=== PATIENT | male | born 1955 | race African-American/Black ===

== ENCOUNTER 2018-05-13 15:59 | Emergency (ER) | payer SELFPAY ==
[~2018-05-13] VITALS: Ht 182.9 cm; Wt 87.0 kg
[~2018-05-13 15:59] MED LIST: AMLO5TAB88 PO; MOTRIN PO
[2018-05-13] MEDS ORDERED: KETOROLAC 60MG/2ML VIAL IM ONE (19:45)
[2018-05-13 20:48] VITALS: BP 135/92
== END 2018-05-13 20:49 | disposition home or self-care (01) ==
LOC: ER 15:59
DX: M62.830 Muscle spasm of back (principal); M17.11 Unilateral primary osteoarthritis, right knee; V49.50XA Passenger injured in collision with unspecified motor vehicles in traffic accident, initial encounter; Y93.89 Activity, other specified; Y92.410 Unspecified street and highway as the place of occurrence of the external cause
CPT/HCPCS: 73562; 96372; 99283; J1885